=== PATIENT | male | born 1970 | race Caucasian/White ===

== ENCOUNTER → 2024-12-31 | Day surgery (SDC) | payer BC, SELFPAY ==
[2024-12-30 15:15] VITALS: BMI 48.8
--- NOTE | 2024-12-31 08:40 | EKG_ITS ---
[facility] Test Date: 2024-12-31 Pat Name: GARETH HENRY Department: Room: - Gender: Male Supervisor [employer]: BRITTANY : 1970 Requested By: Chace Yu Order Number: [id number] Reading MD: Chace Yu Measurements Intervals [place] Rate: 128 P: MD: QRS: -39 QRSD: 117 T: 35 QT: 321 QTc: 469 Interpretive Statements ATRIAL FLUTTER/TACHYCARDIA WITH RAPID VENTRICULAR RESPONSE MARKED LEFT AXIS DEVIATION MODERATE INTRAVENTRICULAR CONDUCTION DELAY No previous ECG available for comparison /[id number]/[email or web address]/[id number].pdf
[2024-12-31 12:42] VITALS: BP 131/101; PULSE 144; RESP 26; TEMP 37; O2SAT 97; BMI 50.3
--- NOTE | 2024-12-31 13:52 | SUR.PREOP ---
cancelled per dr emery. pt advised to go to doctors office by dr emery. high hr and abnormal ekg. denies chest pain.
[2024-12-31 13:57] LABS: Alanine Aminotransferase 33 U/L (10-49); Albumin, Serum 4.4 gm/dL (3.5-5.0); Albumin/Globulin Ratio 1.8 (1.2-2.2); Alkaline Phosphatase 83 U/L (46-116); Anion Gap 10 (7-16); Aspartate Amino Transferase 40 U/L (0-34); BUN/Creatinine Ratio 12 Ratio (12-20); Bilirubin,Total 0.9 mg/dL (0.3-1.2); Blood Urea Nitrogen 12 mg/dL (9-23); Calcium 10.1 mg/dL (8.3-10.6); Calcium (Corrected) 10.1 mg/dL (8.5-10.1); Carbon Dioxide 25.4 mMol/L (20.0-31.0); Chloride 105 mMol/L (98-107); Creatinine (Component) 1.0 mg/dL (0.6-1.3); Estimated Creatinine Clearance 135.2 mL/min (>60); Globulin 2.4 gm/dL (2.3-3.5); Glucose 97 mg/dL (74-106); Osmolality,Calculated 279 (275-295); Potassium 4.6 mMol/L (3.4-5.1); Sodium 140 mMol/L (136-145); Total Protein 6.8 gm/dL (5.7-8.2); eGFR > 60 See Note
== END | disposition home or self-care (01) ==
LOC: S2EX 13:44
PROVIDERS: Anesthesiology; PCP Internal Medicine; Referring Provider Internal Medicine Gastroenterology; Visit Provider Internal Medicine Gastroenterology
PROC: (CPT 43239; principal; 2024-12-31 14:00)
DX: R10.10 Upper abdominal pain, unspecified (principal); E66.01 Morbid (severe) obesity due to excess calories; Z01.810 Encounter for preprocedural cardiovascular examination; I48.92 Unspecified atrial flutter; Z53.9 Procedure and treatment not carried out, unspecified reason
CPT/HCPCS: 36415; 80053; 93005; A4649